=== PATIENT | female | born 1950 | race Two or more races ===

== ENCOUNTER 2017-06-01 21:11 | Emergency (ER) | payer MEDICARE, MEDICAID ==
[~2017-06-01] VITALS: Ht 154.9 cm; Wt 63.5 kg
[2017-06-01 21:20] VITALS: BP 130/98
[2017-06-01] MEDS ORDERED: METOPROLOL TART25 MG ORAL (21:23)
[2017-06-01] MEDS ORDERED: COUMADIN5 MG ORAL (21:23)
[2017-06-01] MEDS ORDERED: ATORVASTATIN CA40 MG ORAL (21:23)
--- NOTE | 2017-06-01 21:44 | Emergency Room Report ---
History of Present Illness General Chief Complaint: Chest Pain Source: Patient, Family Member Present Illness HPI This is a 66-year-old female was a [facility] member. She has a history of mechanical valve replacement and cholecystectomy. She presents with chief complaint of abdominal pain and chest pain. She's been complaining of right upper quadrant pain for the last 3 days. On and off. Pain radiates to her chest. Has nausea vomiting. No diarrhea. No fever or chills. No exertional component. Has not anything for this. Allergies: Coded Allergies: AMIODARONE (Verified Allergy, Unknown, 06/01/17) Patient History Past Medical History: see triage record, old chart reviewed, HTN, arrhyth Past Surgical History: pacemaker, other Pertinent Family History: none Social History: Denies: smoking Now: No Immunizations: other Reviewed Nursing Documentation: PMH: Agreed, PSxH: Agreed Nursing Documentation-PMH Past Medical History: No History, Except For Hx Cardiac Problems: Yes - pacemaker, mechanical valve Hx Pacemaker: Yes Hx Gastrointestinal Problems: Yes - history of GI bleed Hx Neurological Problems: Yes - legally blind, 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 Review of Systems Eye: Denies: blurred vision, eye pain ENT: Denies: ear pain, nose congestion, throat swelling Respiratory: Denies: cough, shortness of breath Cardiovascular: Reports: chest pain, Denies: palpitations Gastrointestinal: Reports: abdominal pain, Denies: diarrhea, nausea, vomiting Musculoskeletal: Denies: back pain, joint pain Skin: Denies: rash Neurological: Denies: headache, numbness Endocrine: Denies: increased thirst, increased urine Hematologic/Lymphatic: Denies: easy bruising All Other Systems: negative except mentioned in HPI Physical Exam Vital Signs Date Time Temp Pulse Resp B/P Pulse Ox O2 Delivery O2 Flow Rate FiO2 06/01/17 21:15 97.2 62 20 130/98 100 Room Air vitals normal Sp02 EP Interpretation: reviewed, normal General Appearance: well appearing, no apparent distress, alert Head: normocephalic, atraumatic Eyes: bilateral eye EOMI, bilateral eye PERRL ENT: hearing grossly normal, normal pharynx Neck: full range of motion, supple, no meningismus Respiratory: chest non-tender, lungs clear, normal breath sounds Cardiovascular #1: regular rate, rhythm, no murmur Gastrointestinal: normal bowel sounds, no mass, no organomegaly, no bruit, non- distended, tenderness - Mild, right upper quadrant Musculoskeletal: back normal, gait/station normal, normal range of motion Psychiatric: mood/affect normal Skin: warm/dry Medical Decision Making Diagnostic Impression: Primary Impression: Pneumonia Qualified Codes: J18.1 - Lobar pneumonia, unspecified organism Additional Impression: Abdominal pain Qualified Codes: R10.11 - Right upper quadrant pain ER Course Present with mostly right upper quadrant pain. She's already had a cholecystectomy. There is no evidence of any retained stone. Chest x-ray and CT show atelectasis/possible pneumonia in the lung bases. CT scan show pancreatitis but lipase is normal and patient has no upper quadrant pain. We' ll discharge home so she is pain-free now. No evidence of any obstruction or acute abdomen. EKG Diagnostic Results EKG Time: 21:42 Rate: normal Rhythm: NSR ST Segments: other - paced Rhythm Strip Diag. Results Rhythm Strip Time: 21:43 EP Interpretation: yes Rate: 60 Rhythm: NSR, no PVC's, no ectopy, other - paced Chest X-Ray Diagnostic Results Chest X-Ray Diagnostic Results : Chest X-Ray Ordered: Yes # of Views/Limited/Complete: 1 View Indication: Chest Pain EP Interpretation: Yes Interpretation: no consolidation, no effusion, no pneumothorax Impression: No acute disease Interpreting ER Provider: Electronically signed by Ousmane Holt MD Last Vital Signs Date Time Temp Pulse Resp B/P Pulse Ox O2 Delivery O2 Flow Rate FiO2 06/01/17 21:20 75 20 Room Air 06/01/17 21:20 97.2 130/98 100 Status: improved Disposition: HOME, SELF-CARE Condition: Stable Scripts Azithromycin* (ZITHROMAX*) 250 Mg Tablet 250 MG ORAL DAILY, #6 TAB 0 Refills Take two tablets by mouth today, then take one tablet by mouth daily for four days Prov: OUSMANE HOLT M.D. 06/01/17 Hydrocodone/Acetaminophen 5-325* (HYDROCODONE/ACETAMINOPHEN 5-325*) 1 Each Tablet 1 TAB ORAL Q6H Y for For Pain, #30 TAB 0 Refills Prov: OUSMANE HOLT M.D. 06/01/17 Additional Instructions: Followup with your DrAmaury in 2 to 3 days. Return if symptom worsen. OUSMANE HOLT M.D. Jun 01, 2017 21:43
[2017-06-01] MEDS ORDERED: Morphine Sulfate 4mg/ml Inj IVP ONE (21:45)
[2017-06-01 21:55] LABS: BASOPHILS % (AUTO) 1.2 % (0.0-2.0); EOSINOPHILS % (AUTO) 1.7 % (0.0-3.0); LYMPHOCYTES % (AUTO) 35.7 % (20.0-45.0); MEAN CORPUSCULAR HEMOGLOBIN 31.8 PG (27.0-31.0); MEAN CORPUSCULAR HGB CONC 35.1 G/DL (32.0-36.0); MEAN CORPUSCULAR VOLUME 91 FL (80-99); MEAN PLATELET VOLUME 11.1 FL (6.5-10.1); MONOCYTES % (AUTO) 6.2 % (1.0-10.0); NEUTROPHILS % (AUTO) 55.1 % (45.0-75.0); PLATELET COUNT 145 K/UL (150-450); RED BLOOD COUNT 4.17 M/UL (4.20-5.40); RED CELL DISTRIBUTION WIDTH 12.2 % (11.6-14.8); WHITE BLOOD COUNT 7.6 K/UL (4.8-10.8)
[2017-06-01 22:10] LABS: ALANINE AMINOTRANSFERASE 14 U/L (3-33); ALBUMIN/GLOBULIN RATIO 1.6 (1.0-2.7); ANION GAP 14 (5-15); ASPARTATE AMINO TRANSFERASE 32 U/L (5-40); CALCIUM 9.3 mg/dL (8.6-10.2); CARBON DIOXIDE 25 mEQ/L (20-30); CHLORIDE 99 mEQ/L (98-107); CREATININE 0.9 mg/dL (0.5-0.9); GLOMERULAR FILTRATION RATE > 60 mL/min (>60); HEMOLYSIS 19; LIPASE 41 U/L (< 60); POTASSIUM 3.7 mEQ/L (3.4-4.9); SODIUM 138 mEQ/L (135-145); TOTAL PROTEIN 7.6 g/dL (6.6-8.7)
[2017-06-01 22:12] LABS: INR 2.8 (0.9-1.1); PROTHROMBIN TIME 29.4 SEC (9.30-11.50)
[2017-06-01] MEDS ORDERED: Ketorolac 30mg Inj ONE (23:26)
[2017-06-01] MEDS ORDERED: AZITHROMYCIN250 MG ORAL (23:38)
[2017-06-01] MEDS ORDERED: HYDROCODON-ACE1 EA15 ORAL (23:38)
[2017-06-01] MEDS ORDERED: Ketorolac 30mg Inj IV ONE (23:45)
[2017-06-01 23:51] VITALS: BP 132/78
[2017-06-02] MEDS ORDERED: cefTRIAXone 1 GM in NS 55 ML IVPB ONE ×2
--- NOTE | 2017-06-02 09:14 | Diagnostic Imaging Report ---
Clinical Indication: Abdominal pain Technique: No oral contrast utilized, per emergency room physician request IV administration nonionic contrast. Venous phase spiral acquisition obtained through the abdomen and pelvis. Multiplanar reconstructions were generated. Total dose length product 911 mGycm. CTDIvol(s) 16 mGy. Dose reduction achieved using automated exposure control Comparison: None Findings: Normal appendix. Questionably a few scattered colonic diverticula. No evidence of diverticulitis. Normal caliber small bowel. No free or loculated intraperitoneal air or fluid. Distal esophagus, stomach, duodenum are unremarkable. There is slight prominence to the pancreas and slight infiltration of the peripancreatic fat. The pancreas enhances normally. There are no peripancreatic fluid collections. No evidence of pancreatic gas. Gallbladder surgically absent. The common bile duct is dilated, measures 14 mm in diameter. No downstream obstructive lesion is demonstrated. There is minimal intrahepatic biliary ductal dilatation. There is prominence of the periportal fat and some periportal edema. No focal liver lesion demonstrated. The spleen, adrenals, kidneys are unremarkable. No retroperitoneal or mesenteric mass or adenopathy. No pelvic mass or adenopathy. The included lung bases demonstrate small cystic spaces and posterior dependent atelectasis. There is a 6 mm irregular nodule within the right middle lobe The heart is enlarged. It contains pacemaker wires and there is a mitral valve. Prosthesis present. The bones are unremarkable except for minimal degenerative changes in the lower lumbar spine. Impression: Slightly prominent pancreas with infiltration of the peripancreatic fat. Findings are compatible with uncomplicated nonnecrotizing pancreatitis Prior cholecystectomy Dilated common bile duct. No definite downstream obstructive lesion. Most likely on the basis of postcholecystectomy state age. Downstream obstruction not completely excludable, however, and correlation with liver function tests is recommended 5 mm irregular nodule right lung base. If there is no significant smoking history or other risk factors for lung carcinoma, no further followup necessary. If there are risk factors, in followup in 6-12 months is recommended. Cardiomegaly Pacemaker and evidence of prior mitral valve surgery Small cystic spaces within the lungs, could indicate mild COPD changes. Correlate with clinical history Nonspecific prominence of the periportal fat and some periportal edema This agrees with the preliminary interpretation provided overnight by [facility] teleradiology service. The CT scanner at [facility] is accredited by the [employer] and the scans are performed using protocols designed to limit radiation exposure to as low as reasonably achievable to attain images of sufficient resolution adequate for diagnostic evaluation.
--- NOTE | 2017-06-02 10:45 | Diagnostic Imaging Report ---
Indication: Chest pain Technique: One view of the chest Comparison: None Findings: There is mild interstitial prominence and central bronchial wall thickening. The heart is mildly enlarged. There is a left chest pacemaker. There is a mitral valve prosthesis. There are cholecystectomy clips Impression: Mild interstitial prominence and central bronchial wall thickening. Possibly chronic or could represent mild interstitial congestion. Correlate with clinical findings
--- NOTE | 2017-06-03 13:19 | Cardiology Report ---
APPROVED REPORT EKG Measurement Heart [id number] IN 144P [id number] Atrial and ventricular paced rhythm Electronic pacemaker
== END 2017-06-02 00:28 | disposition home or self-care (01) ==
LOC: EMR 21:53
DX: J18.1 Lobar pneumonia, unspecified organism (principal); R10.11 Right upper quadrant pain; Z95.2 Presence of prosthetic heart valve; Z90.49 Acquired absence of other specified parts of digestive tract; R11.2 Nausea with vomiting, unspecified; Z95.0 Presence of cardiac pacemaker; I10 Essential (primary) hypertension; Z88.8 Allergy status to other drugs, medicaments and biological substances; R91.1 Solitary pulmonary nodule; I51.7 Cardiomegaly
CPT/HCPCS: 36415; 71010; 74177; 80053; 83690; 85025; 85610; 85730; 93005; 96360; 96374; 96375; 99284; J0696; J1885; J2270; J2405; Q9967